=== PATIENT | female | born 1945 | race Two or more races ===

== ENCOUNTER 2024-07-04 21:45 | Emergency (ER) | payer OTHER, MEDICAID, SELFPAY ==
[2024-07-04 21:52] VITALS: BP 112/78; PULSE 97; RESP 18; TEMP 36.9; O2SAT 97; BMI 29.9
[2024-07-04 22:10] VITALS: PULSE 102; RESP 16; O2SAT 97; BMI 26.4
--- NOTE | 2024-07-04 22:33 | XR_ITS ---
Examination: Wrist, left 3 views Technique: Wrist AP, oblique, lateral 3 views Date and time of exam: 30 5:00 PM Indications: Edema and pain involving the wrist this week. Findings: Severe osteopenia No acute fracture Moderate diffuse narrowing joints of the wrist and hand Soft tissue swelling about the wrist Impression: No fracture No phuong cortical bone destruction
--- NOTE | 2024-07-04 22:33 | XR_ITS ---
Examination: Hand, right 3 views Technique: Hand AP, oblique, lateral 3 views Date and time of exam: 03/14/2024 1035 hrs. Indications: Pain and edema involving the hand this week. Findings: Severe osteopenia Diffuse moderate narrowing joints of the wrist and hand Soft tissue swelling about the third digit with tiny bone density adjacent to the proximal interphalangeal joint No fracture No phuong cortical bone destruction Impression: Soft tissue swelling about the third digit No phuong cortical bone destruction If early osteomyelitis is a clinical consideration, recommend MRI hand without contrast follow-up
--- NOTE | 2024-07-04 22:34 | PD.EDRME ---
Rapid Medical Screening Exam RME Arrival date/time: 07/04/24 21:45 79-year-old female with past medical history of osteoporosis, diabetes, presents emergency department with family ember at bedside complaining of left wrist pain and swelling as well as right hand pain and swelling. Member at bedside reports is unable to care for patient any longer and is requesting SNF placement. Chief Complaint: Hand/Wrist Problems Time Seen by Provider: 07/04/24 22:25 Vital signs: Vital Signs Temperature 98.5 F 07/04/24 21:52 Pulse Rate 97 07/04/24 21:52 Respiratory Rate 18 07/04/24 21:52 Blood Pressure 112/78 07/04/24 21:52 Pulse Oximetry (%) 97 07/04/24 21:52 Oxygen Delivery Method Room Air 07/04/24 21:52 Vital signs reviewed by provider: Yes
[2024-07-04] MEDS: ACETAMINOPHEN 500 MG TABLET 1000 MG PO (22:56)
[2024-07-04 23:15] LABS: Basophils % (Auto) 0 % (0-2.5); Eosinophils % (Auto) 0 % (0-10); Hematocrit 37.4 % (36.0-46.0); Hemoglobin 12.4 g/dL (12.0-16.0); Immature Granulocytes % (Auto) 0 % (0-0); Immature Granulocytes Auto 0.02 Thou/mm3 (0.00-0.00); Lymphocytes # (Auto) 1.1 Thou/mm3 (1.0-4.8); Lymphocytes % (Auto) 16 % (10-50); Mean Corpuscular HGB Conc 33.2 g/dl (31.0-37.0); Mean Corpuscular Hemoglobin 27.3 pg (25.0-35.0); Mean Corpuscular Volume 82 fL (80-100); Monocytes % (Auto) 15 % (0-12); Neutrophils # (Auto) 4.8 Thou/mm3 (1.8-7.7); Neutrophils % (Auto) 69 % (37-80); Nucleated Red Blood Cell % 0 /100 WBC (0); Platelet Count 250 Thou/mm3 (140-440); RDW Standard Deviation 41.2 fL (36.4-46.3); Red Blood Count 4.55 Miln/mm3 (4.00-5.20); White Blood Count 6.9 Thou/mm3 (3.6-11.0)
[2024-07-04 23:35] LABS: Alanine Aminotransferase 9 U/L (10-49); Albumin/Globulin Ratio 1.4 (1.2-2.2); Alkaline Phosphatase 104 U/L (46-116); Anion Gap 5 (7-16); Aspartate Amino Transferase 15 U/L (0-34); BUN/Creatinine Ratio 34 Ratio (12-20); Bilirubin,Total 0.7 mg/dL (0.3-1.2); Blood Urea Nitrogen 24 mg/dL (9-23); Calcium 10.2 mg/dL (8.3-10.6); Calcium (Corrected) 10.2 mg/dL (8.5-10.1); Carbon Dioxide 25.7 mMol/L (20.0-31.0); Chloride 105 mMol/L (98-107); Creatinine (Component) 0.7 mg/dL (0.6-1.3); Estimated Creatinine Clearance 57.5 mL/min (>60); Globulin 2.9 gm/dL (2.3-3.5); Glucose 103 mg/dL (74-106); Osmolality,Calculated 275 (275-295); Potassium 3.9 mMol/L (3.4-5.1); Sodium 136 mMol/L (136-145); Total Protein 6.9 gm/dL (5.7-8.2); eGFR > 60 See Note
[2024-07-05] VITALS (8 sets, daily range): BP systolic 99–115; BP diastolic 70–81; PULSE 77–98; RESP 17–20; TEMP 36.7–37.2; O2SAT 93–96; BMI 11.0
--- NOTE | 2024-07-05 00:20 | PC.NURSE ---
Pt to room 6 at this time from lobby; assumed care.
--- NOTE | 2024-07-05 01:23 | XR_ITS ---
Examination: AP chest single view Technique one AP portable semiupright chest single view Exam date and time: July 05, 2024 0300 hours Comparison November 12, 2017 INDICATIONS: Shortness of breath today. FINDINGS: Mild enlargement cardiac contour Prominent vascular congestion Marked elevation left hemidiaphragm with subsegmental atelectasis left base Ectatic thoracic aorta IMPRESSION: Moderate vascular congestion
--- NOTE | 2024-07-05 01:23 | XR_ITS ---
Examination: CT abdomen with intravenous contrast CT pelvis with intravenous contrast 2-D coronal reconstructions 2-D sagittal reconstructions Date and time of exam:July 05, 2024 0205 hours INDICATIONS: Onset abdominal pain today. CTDI: vol (mGy) 29.2 DLP: (mGycm) 1293 Technique: Multiple axial sections of the abdomen and pelvis have been obtained. 64 slice high-resolution scanner used. 3 mm axial sections have been obtained, post intravenous injection 60 cc Isovue-370 2-D sagittal, coronal reconstructions obtained. Low dose protocols were performed. One or more of the following dose reduction techniques were used; automated exposure control, adjustment of the mA and/or KV according to patient size, use of iterative reconstruction technique. Findings: Most of the stomach has herniated into the hemithorax on the left This appearance is noted on the chest x-ray October 23, 2017 There is mucosal edema in the body the stomach and to a lesser extent the fundus No focal liver or splenic lesions No gallstones Left adrenal nodule 20 mm Renal parenchymal scar formation, no hydronephrosis Abdominal aorta is not enlarged Normal appendix No bowel obstruction Urinary bladder intact Calcified are stable uterine fibroid degeneration Prominent osteopenia Advanced disc narrowing L4-L5, L5-S1 IMPRESSION: Most of the stomach is herniated into the hemithorax on the left and appears rotated in appearance Consider GI series follow-up to exclude gastric outlet obstruction Gastritis pattern 20 mm left adrenal nodule, recommend MRI abdomen follow-up pre and postcontrast adrenal gland protocol
--- NOTE | 2024-07-05 01:23 | EKG_ITS ---
[facility] Test Date: 2024-07-05 Pat Name: MJ WILBURN Department: Room: - Gender: Female [employer] Supervisor: : 1945 Requested By: Robby Yen Order Number: [id number] Reading MD: Robby Yen Measurements Intervals [place] Rate: 77 P: 50 FL: 177 QRS: 34 QRSD: 90 T: 69 QT: 357 QTc: 405 Interpretive Statements SINUS RHYTHM Compared to ECG 10/23/2017 11:22:15 No significant changes /store/S0/[id number]/[id number].pdf
--- NOTE | 2024-07-05 01:24 | XR_ITS ---
Examination: CTA chest with intravenous contrast 2-D reconstructions 3-D reconstructions, vascular Date and time of exam: July 05, 2024 0205 hours INDICATIONS: Onset shortness of breath chest pain today CTDI: vol (mGy) 31.91 DLP: (mGycm) 566 Technique: Multiple axial sections of the thorax have been obtained. 3 mm slice thickness, from below the hemidiaphragms to above the apices of the lungs. Mediastinal and lung density settings have been obtained. 2-D sagittal and coronal reconstructions. 3-D angiographic renderings, 3-D volume renderings, 3D post processing, vascular maximum intensity projections obtained. Contrast administered is 100 cc Isovue-370. Low dose protocols were performed. One or more of the following dose reduction techniques were used; automated exposure control, adjustment of the mA and/or KV according to patient size, use of iterative reconstruction technique. Findings: No thoracic aortic aneurysm dilatation or dissection No pulmonary artery emboli No paratracheal tracheobronchial or bronchopulmonary adenopathy No pneumonia or pulmonary edema Please see the CT abdomen pelvis report today IMPRESSION: Negative for pulmonary artery emboli No pneumonia or pulmonary edema
--- NOTE | 2024-07-05 01:24 | XR_ITS ---
Examination: CT brain head without contrast. 2-D sagittal coronal reconstructions Date and time of exam:July 05, 2024 INDICATIONS: Altered mental status today CTDI: vol (mGy):45.30 DLP: (mGycm):1001 Technique: Multiple CT axial sections of the brain have been obtained, 5 mm slice thickness. Contrast has not been administered. 2-D sagittal, coronal reconstructions have been obtained Low dose protocols were performed. One or more of the following dose reduction techniques were used; automated exposure control, adjustment of the mA and/or KV according to patient size, use of iterative reconstruction technique. Findings: No significant ventricular enlargement. Intra-axial or extra-axial hemorrhage density is not seen. No mass effect or midline shift Basal cisterns are not remarkable. Fourth ventricle is midline. Cranial vault intact. Impression: Negative for acute hemorrhage, mass effect or midline shift
--- NOTE | 2024-07-05 01:25 | XR_ITS ---
Examination: Humerus 2 views left Technique: Humerus, AP lateral 2 views Date and time of exam: July 05, 2024 at 0254 hours INDICATIONS: Patient fell today with injury to the arm, left arm pain FINDINGS: No acute fracture No shoulder dislocation IMPRESSION: No acute fracture
--- NOTE | 2024-07-05 01:26 | XR_ITS ---
Examination: Hand, left 3 views Technique: Hand AP, oblique, lateral 3 views Date and time of exam: July 05, 2024 0220 hours INDICATIONS: Patient fell today with injury to hand, hand pain FINDINGS: Prominent osteopenia No acute fracture No dislocation IMPRESSION: No acute fracture
--- NOTE | 2024-07-05 01:27 | XR_ITS ---
Examination: Tibia-Fibula, bilateral , 4 views. Technique one AP lateral right and left tibia-fibula is 4 views Date and time of exam: July 05, 2024 0222 hours INDICATIONS: Patient fell today with injury to both lower legs, bilateral lower leg pain Findings: Studies are limited, not including the entire tibia fibula on all views Moderate osteopenia No acute fracture is noted IMPRESSION: Incomplete study with no acute fractures noted
--- NOTE | 2024-07-05 01:27 | XR_ITS ---
Examination: Bilateral femur 4 views Technique one AP lateral right and left femur 4 views Exam date and time: July 05, 2024 0234 hours INDICATIONS: Patient fell today with injury to both lower legs, bilateral femur pain FINDINGS: Moderate osteopenia No right or left hip fracture or hip dislocation Moderate narrowing hip joints Shaft right and left femur intact Bilateral significant knee effusions, clinical correlation advised IMPRESSION: No acute fracture Significant bilateral knee effusions, clinical correlation advised
[2024-07-05 01:56] LABS: Lactate (Lactic Acid) 0.6 mMol/L (0.4-2.0)
[2024-07-05 01:59] LABS: Basophils % (Auto) 0 % (0-2.5); Eosinophils % (Auto) 0 % (0-10); Hematocrit 34.1 % (36.0-46.0); Hemoglobin 11.3 g/dL (12.0-16.0); Immature Granulocytes % (Auto) 0 % (0-0); Immature Granulocytes Auto 0.02 Thou/mm3 (0.00-0.00); Lymphocytes % (Auto) 14 % (10-50); Mean Corpuscular HGB Conc 33.1 g/dl (31.0-37.0); Mean Corpuscular Volume 82 fL (80-100); Monocytes % (Auto) 14 % (0-12); Neutrophils # (Auto) 4.8 Thou/mm3 (1.8-7.7); Neutrophils % (Auto) 71 % (37-80); Nucleated Red Blood Cell % 0 /100 WBC (0); Platelet Count 215 Thou/mm3 (140-440); RDW Standard Deviation 41.2 fL (36.4-46.3); Red Blood Count 4.18 Miln/mm3 (4.00-5.20); White Blood Count 6.7 Thou/mm3 (3.6-11.0)
--- NOTE | 2024-07-05 02:03 | PC.NURSE ---
Pt to CT scan at this time via [facility].
[2024-07-05 02:06] LABS: Sed Rate (ESR) 87 mm/hr (0-30)
[2024-07-05 02:14] LABS: D-Dimer 2310 ng/mL (<600)
[2024-07-05 02:15] LABS: Mono Screen Negative (Negative)
[2024-07-05 02:17] LABS: INR 1.1 (0.9-1.3); Partial Thromboplastin Time 31.3 Seconds (22.0-36.0); Prothrombin Time 11.8 Seconds (9.0-12.2)
[2024-07-05 02:21] LABS: B-Type Natriuretic Peptide 24 pg/mL (0-100)
[2024-07-05 02:29] LABS: Albumin, Serum 3.6 gm/dL (3.4-4.8); Albumin/Globulin Ratio 1.4 (1.2-2.2); Alkaline Phosphatase 94 U/L (46-116); Anion Gap 8 (7-16); Aspartate Amino Transferase 13 U/L (0-34); BUN/Creatinine Ratio 29 Ratio (12-20); Bilirubin,Total 0.7 mg/dL (0.3-1.2); Blood Urea Nitrogen 23 mg/dL (9-23); Calcium 9.6 mg/dL (8.3-10.6); Calcium (Corrected) 9.9 mg/dL (8.5-10.1); Carbon Dioxide 23.4 mMol/L (20.0-31.0); Chloride 104 mMol/L (98-107); Creatine Kinase 22 U/L (34-171); Creatinine (Component) 0.8 mg/dL (0.6-1.3); Estimated Creatinine Clearance 50.3 mL/min (>60); Globulin 2.6 gm/dL (2.3-3.5); Glucose 111 mg/dL (74-106); Lipase 100 U/L (12-53); Magnesium 1.8 mg/dL (1.6-2.6); Osmolality,Calculated 274 (275-295); Potassium 3.8 mMol/L (3.4-5.1); Sodium 135 mMol/L (136-145); Thyroid Stimulating Hormone 5.27 uIU/mL (0.55-4.78); Total Protein 6.2 gm/dL (5.7-8.2); Troponin I < 0.002 ng/mL (0.0-0.045); Uric Acid 4.5 mg/dL (3.1-7.8); eGFR > 60 See Note
--- NOTE | 2024-07-05 02:33 | PC.NURSE ---
XRAY at the bedside at this time.
[2024-07-05 02:47] LABS: Alanine Aminotransferase 8 U/L (10-49)
[2024-07-05 03:03] LABS: Strep A Rapid Negative (Negative)
[2024-07-05 03:08] LABS: Respiratory Syncytial Virus Ag Negative (Negative)
--- NOTE | 2024-07-05 03:20 | PRELIM_ITS ---
CT scan of the head without intravenous contrast (axial sections with sagittal and coronal reformats) July 05, 2024 0203 hours Clinical history: AMS No prior study is available for comparison. Findi ngs:There is no evidence of intracranial hemorrhage, mass effect or midline shift. There are mild per iventricular white matter hypodensities, likely representing chronic small vessel ischemia. There is mild volume loss. The calvarium is unremarkable. The mastoid air cells and the visualized paranasal s inuses are clear.Impression:No evidence of intracranial hemorrhage, mass effect or midline shift.Madelyn ventricular chronic small vessel ischemia and volume loss. Report Electronically Signed By: Jarred conde 07/05/2024 3:19:32 AM [EST]
--- NOTE | 2024-07-05 03:24 | EDNOTE_ITS ---
ED General RME/HPI General Chief complaint: Hand/Wrist Problems Stated complaint: HAND SWELLING Time Seen by Provider: 07/04/24 22:25 Arrival date/time: 07/04/24 21:45 RME / HPI RME / HPI narrative: 07/04/24 21:45 79-year-old female with past medical history of osteoporosis, diabetes, presents emergency department with family ember at bedside complaining of left wrist pain and swelling as well as right hand pain and swelling. Member at bedside reports is unable to care for patient any longer and is requesting SNF placement. This section includes all my notes and documentations, including HPI, PE, and ED course. Robby Grossman MD HPI: 79-year-old female here to be evaluated with many areas of pain and decreased ability to stand and walk. Patient has dementia also can't provide any history. But her sister lives with her and the sister is present. In the past few days, patient has been suffering from pain almost diffusely. Difficult to localize, other than different joints (including left wrist and right ankle) with no obvious pattern. And the patient has been having more trouble standing and walking on her own for no obvious reason. No obvious fever. No other complaints. ROS: Can't obtain from the patient due to dementia. Physical Exam: General: Alert and oriented X 1. No acute distress when remaining still. Eyes: Conjunctivae and lids clear. EOMI. PERRL. ENT: No nasal congestion. Neck: Supple. No carotid bruit. No JVD. Heart: RRR. Lungs: No respiratory distress. Moderately decreased air movement. No significant rhonchi, wheezing, rales. Abdomen: Soft with diffuse and severe tenderness, difficult to localize. Decreased bowel sounds. Equivocal distension. Equivocal rebound and guarding. Skin: Warm and dry. Neuro: Alert and oriented X 1. Cranial Nerves II-XII grossly intact. No peripheral motor deficits. Musculoskeletal: Many joints are severely tender and edematous, including left hand/wrist and right ankle. I reviewed all diagnostic test results. My interpretation of the EKG is sinus rhythm with nonspecific ST-T changes. My interpretation of the x-rays is My review of the CT reports is severe hiatal hernia with gastric volvulus and obstruction. Blood tests and urine tests remarkable for D-dimer 2310, LA 0.6, uric acid 4.5, CRP 11. COVID/influenza/mono/strep/RSV negative. At this point, diagnoses include severe hiatal hernia with gastric volvulus and obstruction. I discussed the case with our GI and our surgeon. About the presentation and exam and diagnostics and treatments here. And need of further care in the hospital. Recommended transfer because hiatal hernia surgery not available here. At 6 AM, the care of the patient was transferred to Dr Villegas. Robby Grossman MD Related Data Home Medications ?Medication ?Instructions ?Recorded ?Confirmed atenolol 50 mg tablet (Tenormin) 50 mg PO QAM #0 tabs 08/22/16 10/19/18 gabapentin 100 mg capsule 300 mg PO HS #0 caps 08/22/16 10/19/18 metformin 500 mg tablet 500 mg PO BID #0 tabs 08/22/16 10/19/18 (Glucophage) simvastatin 20 mg tablet (Zocor) 20 mg PO HS #0 tabs 08/22/16 10/19/18 alendronate 70 mg tablet 70 mg PO Q7D 10/23/17 10/19/18 aspirin 81 mg tablet,delayed 81 mg PO QDAY 10/23/17 10/19/18 release (Aspir-Low) cyanocobalamin (vitamin B-12) 5,000 mcg PO QDAY 10/23/17 10/19/18 5,000 mcg sublingual tablet donepezil [Aricept] 10 tab PO HS 04/12/18 10/19/18 acetaminophen 500 mg tablet 500 mg PO Q6H PRN Pain 10/19/18 10/19/18 (Tylenol Extra Strength) baclofen 10 mg tablet 10 mg PO BID 10/19/18 10/19/18 calcium carbonate (Calcium 600) 1 tab PO DAILY 10/19/18 10/19/18 fluoxetine 20 mg capsule 20 mg PO QDAY 10/19/18 10/19/18 melatonin 5 mg tablet 5 mg PO HS 10/19/18 10/19/18 memantine 10 mg tablet 10 mg PO BID 10/19/18 10/19/18 multivitamin,tx-minerals 1 cap PO QDAY 10/19/18 10/19/18 (Multi-Vitamin HP/Minerals capsule) omega 9-hdp-dcl-fish oil 1,000 mg 1 cap PO DAILY 10/19/18 10/19/18 (120 mg-180 mg) capsule (Fish Oil) omeprazole 40 mg capsule,delayed 40 mg PO QDAY 10/19/18 10/19/18 release Allergies Allergy/AdvReac Type Severity Reaction Status Date / Time No Known Allergies Allergy Verified 07/04/24 22:14 Course Quality Measures none Orders Category Date Time Status Bedside COVID-19 Antigen Test NOW Care 07/05/24 01:23 Active Bedside Influenza A&B Antigen Test NOW Care 07/05/24 01:[address] Screening NOW Care 07/05/24 01:23 Active EKG (ED ONLY) *Do not use* NOW Care 07/05/24 01:23 Completed Saline [Insert IV] NOW Care 07/05/24 01:23 Active Straight [In and Out Catheter] X1 Care 07/05/24 01:23 Active Referral Physical Therapy Stat Cons 07/04/24 22:[address] abdomen pelvis w con Stat Exams 07/05/24 01:[address] angio chest Stat Exams 07/05/24 01:[address] head/brain wo con Stat Exams 07/05/24 01:24 Taken EKG (ED Only) Stat Exams 07/05/24 01:23 Draft XR chest 1V portable Stat Exams 07/05/24 01:23 Taken XR femur BI min 2V Stat Exams 07/05/24 01:27 Taken XR hand comp LT min 3V Stat Exams 07/05/24 01:26 Taken XR hand comp RT min 3V Stat Exams 07/04/24 22:33 Completed XR humerus BI min 2V Stat Exams 07/05/24 01:25 Taken XR tibia fibula BI 2V Stat Exams 07/05/24 01:27 Taken XR wrist comp LT min 3V Stat Exams 07/04/24 22:33 Completed BNP [B-Type Natriuretic Peptide] Stat Lab 07/05/24 01:44 Completed Blood Culture (Lab) Stat Lab 07/05/24 01:54 Received CBC Stat Lab 07/04/24 22:57 Completed CBC Stat Lab 07/05/24 01:44 Completed CK [Creatine Kinase] Stat Lab 07/05/24 01:44 Completed CMP [Comprehensive Metabolic Panel] Stat Lab 07/04/24 22:57 Completed CMP [Comprehensive Metabolic Panel] Stat Lab 07/05/24 01:44 Completed CRP [C-Reactive Protein] Stat Lab 07/05/24 01:44 Completed D-Dimer Stat Lab 07/05/24 01:44 Completed ESR [Sed Rate (ESR)] Stat Lab 07/05/24 01:44 Completed Lactate (Lactic Acid) Stat Lab 07/05/24 01:44 Completed Lipase Stat Lab 07/05/24 01:44 Completed Magnesium Stat Lab 07/05/24 01:[address] [place] [facility] Screen Stat Lab 07/05/24 01:44 Completed PT [Prothrombin Time with INR] Stat Lab 07/05/24 01:44 Completed PTT [Partial Thromboplastin Time] Stat Lab 07/05/24 01:44 Completed RSV [Respiratory Syncytial Virus Ag] Stat Lab 07/05/24 01:44 Completed Strep A Rapid Stat Lab 07/05/24 01:44 Completed TSH [Thyroid Stimulating Hormone] Stat Lab 07/05/24 01:44 Completed Troponin I Stat Lab 07/05/24 01:44 Completed Uric Acid Stat Lab 07/05/24 01:44 Completed Urinalysis, C/S if Indicated Stat Lab 07/04/24 04:55 Completed Urine Culture Stat Lab 07/05/24 04:55 Received Acetaminophen Tab [Tylenol ES Tab] Med 07/04/24 22:33 Discontinued 1,000 mg PO X1 ONE Referral Nursing Unit Manager NOW 07/04/24 22:37 Active Vital Signs Vital signs: Vital Signs Temperature 98.5 F 07/04/24 21:52 Pulse Rate 97 07/04/24 21:52 Respiratory Rate 18 07/04/24 21:52 Blood Pressure 112/78 07/04/24 21:52 Pulse Oximetry (%) 97 07/04/24 21:52 Oxygen Delivery Method Room Air 07/04/24 21:52 [facility] Patient data External records reviewed:: [facility] previous records and EMS form Clinical information provided by:: EMS and family Social determinants that could affect healthcare access:: other (specify) (Dementia) Patient has the following chronic illnesses:: See chart How is presenting disease/condition affected by chronic disease/condition?: e xacerbated by Evaluation data The following diagnostics were reviewed and interpreted by me:: lab results, radiology exam(s) and EKG tracing(s) (My interpretation of the EKG: NSR (77 bpm) with no ST-T changes. Robby Grossman MD) Lab and/or radiology exams considered but not ordered:: None Interpretation Summary: Severe hiatal hernia with volvulus and obstruction Medications Medications considered but not ordered:: None Medication administrations:: Medication Administration History Discontinued Medications Acetaminophen (Acetaminophen 500 Mg Tablet) 1,000 mg PO X1 ONE Stop: 07/04/24 22:34 Last Admin: 07/04/24 22:56 Dose: 1,000 mg Documented By: See chart Consultations Consultation(s) initiated? (list below): Yes Consultation #1 (Physician, Specialty, Details): Surgery and GI Diagnosis Differential Diagnosis ED Complaint MDM: UTI, pneumonia, CVA, DC, sepsis, dehydration, electrolyte abnormalities Most likely diagnosis given after review of the tests above:: Severe hiatal hernia with volvulus and obstruction Admission Indicated Admission indicated?: not indicated Explain why admission is indicated or not indicated:: Our GI and surgery recommended transfer Admission Request Was there a request for admission?: No Disposition Plan Disposition Plan: Transfer Medical Decision Making Differential Diagnosis Differential Diagnosis: UTI, pneumonia, CVA, DC, sepsis, dehydration, electrolyte abnormalities Lab Data 07/05/24 01:44 07/05/24 01:44 Labs: Lab Results 07/04/24 07/04/24 07/05/24 Range/Units 04:55 22:57 01:44 WBC 6.9 6.7 (3.6-11.0) Thou/mm3 RBC 4.55 4.18 (4.00-5.20) Miln/mm3 Hgb 12.4 11.3 L (12.0-16.0) g/dL Hct 37.4 34.1 L (36.0-46.0) % MCV 82 82 (80-100) fL MCH 27.3 27.0 (25.0-35.0) pg MCHC 33.2 33.1 (31.0-37.0) g/dl RDW Std Deviation 41.2 41.2 (36.4-46.3) fL Plt Count 250 215 D (140-440) Thou/mm3 Neut % (Auto) 69 71 (37-80) % Lymph % (Auto) 16 14 (10-50) % [facility] [place] [facility] % (Auto) 15 H 14 H (0-12) % Eos % (Auto) 0 0 (0-10) % Baso % (Auto) 0 0 (0-2.5) % Neut # (Auto) 4.8 4.8 (1.8-7.7) Thou/mm3 Lymph # (Auto) 1.1 1.0 (1.0-4.8) Thou/mm3 [facility] # (Auto) 1.0 H 1.0 H (0.0-0.8) Thou/mm3 Eos # (Auto) 0.0 0.0 (0.0-0.5) Thou/mm3 Baso # (Auto) 0.0 0.0 (0.0-0.2) Thou/mm3 Immature Gran # (Auto) 0.02 H 0.02 H (0.00-0.00) Thou/mm3 Absolute Nucleated RBC 0.00 0.00 (0.00-0.00) Thou/mm3 Immature Gran % 0 0 (0-0) % Nucleated RBC % 0 0 (0) /100 WBC ESR 87 H (0-30) mm/hr PT 11.8 (9.0-12.2) Seconds INR 1.1 (0.9-1.3) APTT 31.3 (22.0-36.0) Seconds D-Dimer 2310 H (<600) ng/mL Sodium 136 135 L (136-145) mMol/L Potassium 3.9 3.8 (3.4-5.1) mMol/L Chloride 105 104 (98-107) mMol/L Carbon Dioxide 25.7 23.4 (20.0-31.0) mMol/L Anion Gap 5 L 8 (7-16) BUN 24 H 23 (9-23) mg/dL Creatinine 0.7 0.8 (0.6-1.3) mg/dL Estim Creat Clear Calc 57.5 L 50.3 L (>60) mL/min eGFR > 60 > 60 (60 - ) See Note BUN/Creatinine Ratio 34 H 29 H (12-20) Ratio Glucose 103 111 H (74-106) mg/dL Calculated Osmolality 275 274 L (275-295) Lactic Acid 0.6 (0.4-2.0) mMol/L Uric Acid 4.5 (3.1-7.8) mg/dL Calcium 10.2 9.6 (8.3-10.6) mg/dL Corrected Calcium 10.2 H 9.9 (8.5-10.1) mg/dL Magnesium 1.8 (1.6-2.6) mg/dL Total Bilirubin 0.7 0.7 (0.3-1.2) mg/dL AST 15 13 (0-34) U/L ALT 9 L 8 L (10-49) U/L Alkaline Phosphatase 104 94 (46-116) U/L Total Creatine Kinase 22 L (34-171) U/L Troponin I < 0.002 (0.0-0.045) ng/mL C-Reactive Prot, Quant 11.0 H (0.0-0.9) mg/dL B-Natriuretic Peptide 24 (0-100) pg/mL Total Protein 6.9 6.2 (5.7-8.2) gm/dL Albumin 4.0 3.6 (3.4-4.8) gm/dL Globulin 2.9 2.6 (2.3-3.5) gm/dL Albumin/Globulin Ratio 1.4 1.4 (1.2-2.2) Lipase 100 H (12-53) U/L TSH 5.27 H (0.55-4.78) uIU/mL Ur Collection Type Clean Catch Urine Color Lt-Yellow (Lt Yel-Yel) Urine Clarity Clear (Clear/Hazy) Urine pH 7.0 (5.0-7.0) Ur Specific [place] 1.034 (1.001-1.035) Urine Protein Negative (Neg - Trace) Urine Glucose (UA) Negative (Negative) Urine Ketones Negative (Negative) Urine Blood Negative (Negative) Urine Nitrite Negative (Negative) Urine Bilirubin Negative (Negative) Urine Urobilinogen (Auto) Negative (0.0-1.0) mg/dL Ur Leukocyte Esterase Negative (Negative) Urine RBC 8 H (0-3) /hpf Urine WBC < 1 (0-5) /hpf Ur Squamous Epith Cells < 1 (0-5) /hpf Urine Bacteria None (None) Ur Culture Indicated? Not Indicated Monoscreen Negative (Negative) RSV Rapid Negative (Negative) Group A Strep Rapid Negative (Negative) Discharge Plan Plan Patient Disposition: Xfer Acute Care Fac Prescriptions/Referrals Prescriptions/Med Rec: No Action donepezil 10 tab PO HS gabapentin 100 MG capsule 300 mg PO HS Qty: 0 metformin [Glucophage] 500 MG tablet 500 mg PO BID Qty: 0 simvastatin [Zocor] 20 MG tablet 20 mg PO HS Qty: 0 atenolol [Tenormin] 50 MG tablet 50 mg PO QAM Qty: 0 alendronate 70 mg Tablet 70 mg PO Q7D aspirin [Aspir-Low] 81 mg Tablet,Delayed Release (Dr/Ec) 81 mg PO QDAY cyanocobalamin (vitamin B-12) 5,000 mcg Tablet, Sublingual 5,000 mcg PO QDAY omeprazole 40 mg Capsule,Delayed Release(Dr/Ec) 40 mg PO QDAY acetaminophen [Tylenol Extra Strength] 500 mg Tablet 500 mg PO Q6H PRN (Reason: Pain) calcium carbonate [Calcium 600] 600 mg calcium (1,500 mg) Tablet 1 tab PO DAILY baclofen 10 mg Tablet 10 mg PO BID fluoxetine 20 mg Capsule 20 mg PO QDAY Multi-Vitamin HP/Minerals Capsule 1 cap PO QDAY memantine 10 mg Tablet 10 mg PO BID melatonin 5 mg Tablet 5 mg PO HS omega 8-eub-oul-fish oil [Fish Oil] 1,000 mg (120 mg-180 mg) Capsule 1 cap PO DAILY Referrals: Dirk Dyer MD [Primary Care Provider] - In 1 week Problem List Clinical Impression: Large hiatal hernia, Acute gastric volvulus Patient/Caregiver Discharge Instructions Print Language: Luxembourgish Stand Alone Forms: [facility] Award Info., Patient Portal Info Letter
--- NOTE | 2024-07-05 03:41 | PRELIM_ITS ---
CT scan of the abdomen and pelvis with intravenous contrast (axial sections with sagittal and coronal reformats) July 05, 2024 at 0205 hoursClinical History: Abdominal pain.No prior study is availab le for comparison. Findings:Multiple calculi are noted within the gallbladder, without evidence of ga llbladder wall thickening or pericholecystic fluid. There is a left adrenal nodule, measuring 2 cm wi th density of +65 HU of indeterminate etiology. The liver, pancreas, spleen, kidneys are unremarkable .A large hiatal hernia is present with herniation of the entire stomach. The stomach is distended wit h air-fluid level and inverted appearance suggestive of organo-axial volvulus. No evidence of bowel d ilatation. The appendix is within normal limits. There are occasional colonic diverticula without radha dence of diverticulitis. There is no adenopathy. The aorta and its branches demonstrate atheromatous calcification without evidence of aneurysm.The urinary bladder is not well distended. There are calci fied intrauterine fibroids. There is no free fluid or free air.Mild degenerative changes are identifi ed in the spine. There is mild anterolisthesis of L3 over L4 and L4 over L5. Impression:Large hiatal hernia with features of gastric volvulus, possibility of partial gastric outlet obstruction cannot be excluded.Indeterminate left adrenal nodule. Other findings as described above. Please refer to the r eport on the Chest CT submitted separately. Report Electronically Signed By: Jarred Craig 4 3:40:45 AM [EST]
--- NOTE | 2024-07-05 03:41 | PRELIM_ITS ---
CT angiogram of the chest aorta with intravenous contrast (axial sections with sagittal and coronal r eformats) July 05, 2024 at 0205 hours Clinical History: Shortness of breath.No prior study is ramya ilable for comparison. Findings:The thoracic aorta demonstrates mild atheromatous calcification with a tortuous course and without evidence of dissection or aneurysm. The origins of the right brachiocep halic, left common carotid and left subclavian arteries are patent.There is no filling defect within the pulmonary artery divisions to suggest pulmonary thromboembolism.Mild emphysematous changes are no shai in the lungs. There is subsegmental atelectasis in the right middle lobe. Bibasilar streaky atele ctasis is present.The mediastinum demonstrates no evidence of mass or lymphadenopathy. There is a sma ll pericardial effusion. A large hiatal hernia is present, with herniation of the almost the entire s tomach, with elevation of the left hemidiaphragm, rightward mediastinal shift, and atelectasis in the left lower lobe of the lung. The stomach is distended with air-fluid level, with inverted appearance of stomach, suggestive of organo-axial volvulus.No evidence of pleural effusion or pneumothorax.Mild degenerative changes are identified in the spine. There are old compression deformities of T8 and T9 vertebrae. Impression:No evidence of pulmonary thromboembolism or aortic dissection/aneurysm.Small p ericardial effusion.Findings suggestive of large hiatal hernia with features of gastric volvulus, pa rtial gastric outlet obstruction cannot be excluded.Other findings as described above. Please refer t o the report on the Abdomen and Pelvis CT submitted separately.Discussion Details: Results verbally communicated to : Dr. Grossman at 03:34 AM 07/05/2024 Report Electronically Signed By: Jarred Craig 07/05 3:40:26 AM [EST]
[2024-07-05 05:04] LABS: Collection Type, Urine Clean Catch
[2024-07-05 05:06] LABS: Bilirubin,Urine Negative (Negative); Blood,Urine Negative (Negative); Clarity,Urine Clear (Clear/Hazy); Color,Urine Lt-Yellow (Lt Yel-Yel); Culture Indicated,Urine Not Indicated; Glucose, Urine Negative (Negative); Ketones,Urine Negative (Negative); Leukocyte Esterase,Urine Negative (Negative); Nitrite,Urine Negative (Negative); Protein,Urine Negative (Neg - Trace); RBC,Urine 8 /hpf (0-3); Specific Gravity,Urine 1.034 (1.001-1.035); Squamous Epithelial Cell,Urine < 1 /hpf (0-5); Urobilinogen,Urine Negative mg/dL (0.0-1.0); WBC,Urine < 1 /hpf (0-5)
--- NOTE | 2024-07-05 07:13 | PD.EDADDENDU ---
Emergency Room Addendum Addendum Narrative: 0600: Care assumed from Dr. Grossman, the previous shift emergency physician. Past medical, surgical, social and family history reviewed. Vitals and home medications reviewed. I will assume the care of the patient at this time, pending consultation with director of social media marketing. Please refer to the emergency department record for history and examination from initial visit.? EMS notes reviewed by me. Nursing notes reviewed by me. Vital signs reviewed by me. [facility] medical records reviewed by me. Patient has no complaints of nausea or vomiting. Reports she ate dinner okay and has had bowel movements. I reviewed patients EMR and she has had no previous CT's on record. She sparingly has CXR's which show elevation of the left hemidiaphragm that was incidentally noted today on the CT scan. Patient today complains of hand swelling. On my examination, patient is sleeping/resting comfortably, no findings suggestive of gastric volvulus. Patient admits to having decades worth of acid reflux and excessive burping but not to a degree that she would require surgery. Additionally reports she is evaluated by Dr. Dyer on a regular basis and had not been told she has a hiatal hernia. Patient has baseline dementia, will speak with daughter to obtain additional history. I discussed option of surgery with the patient and states at the age of 79, she doesn't think it is good to do surgery. 1345: Notified by our high school social studies tutor that the patients insurance [employer] has authorized placement at [facility].
--- NOTE | 2024-07-05 16:36 | PC.NURSE ---
Patient provided with a meal tray.
--- NOTE | 2024-07-05 18:41 | PC.NURSE ---
Report given to Cassie at [facility]
--- NOTE | 2024-07-05 18:56 | PC.CC ---
Pt Chacha Shannon is a 79 yr old female to ED for hand swelling. Pt is from home [address] in [place]. Pt resides with her sister Xuan Fall [phone]. Pts sister requesting SS consult for placement in skilled setting. BOAT MECHANIC CC met with pt at bedside, introducing self and role in pt care. At time of encounter pt is noted to be resting on gurney. Pt is noted to be alert and oriented to person, place and situation. Pt expressed that she is interested in skilled placement, due to increased weakness. Pt reports her preference of placement is at [facility], to be close to her family. Pt expressed verbal consent for [employer] CC to speak with her sister Xuan. 1439-BOAT MECHANIC CC spoke with pts sister, who confirmed preference in placement is at [facility]. Per pts sister due to her own health issues, she is unable to fully care for pt, who is becoming more dependent. Per pts sister to her knowledge pt does not have a hx of MH issues. Pt is not prescribed MH medications. Pt does not have ID/DD. Pt has never received services from a [facility]. BOAT MECHANIC CC explained process for placement with family being kept updated on placement. Pts sister is in agreement with plan. PASRR completed and clinical packet uploaded to [employer] to local facilities. Inquiry sent to [facility] for review. 1206-BOAT MECHANIC CC spoke with Cheri with [facility] who say they are able to accept pt based on auth from [facility]. BOAT MECHANIC CC informed Cheri that pts clinical packet has been faxed to [facility] and is under review at this time. 1339-Call from Jhoana with [facility], who has given auth and will follow up with Cheri. 1343-BOAT MECHANIC CC spoke with Cheri to provide update that [facility] will auth placement. Cheri requesting transport ETA after 1830 due to 3 new admissions this afternoon. BOAT MECHANIC CC agreed. 1452-Call from Cheri requesting that BOAT ME[employer]IC CC make contact with pts sister, to assess if pts family will be able to sign paperwork prior to 1630. Cheri request a call back. 1459-Call to pts sister Xuan who states she will go to [facility] to sign paperwork. 1502-Call to Cheri to confirm pts sister will go to sign paperwork. PCS and face sheet completed and uploaded to [employer]. 3848-Call to [facility] for gurney transport. Reference # [id number]-ovnauvv transport ETA. Clinical packet, and PCS attached to pts hard chart.
== END 2024-07-05 20:55 | disposition home or self-care (01) ==
PROVIDERS: Emergency Medicine; Emergency Provider Emergency Medicine; PCP Family Medicine
DX: K44.0 Diaphragmatic hernia with obstruction, without gangrene (principal); M25.532 Pain in left wrist; M79.641 Pain in right hand; M25.571 Pain in right ankle and joints of right foot; E11.9 Type 2 diabetes mellitus without complications; F03.90 Unspecified dementia, unspecified severity, without behavioral disturbance, psychotic disturbance, mood disturbance, and anxiety; K31.89 Other diseases of stomach and duodenum; M81.0 Age-related osteoporosis without current pathological fracture; Z74.2 Need for assistance at home and no other household member able to render care
CPT/HCPCS: 36415; 70450; 71045; 71275; 73060; 73110; 73130; 73552; 73590; 74177; 80053; 81001; 82550; 83605; 83690; 83735; 83880; 84443; 84484; 84550; 85025; 85379; 85610; 85652; 85730; 86140; 86308; 87040; 87086; 87400; 87634; 87651; 87811; 93005; 99285; A4649; Q9967; A9270

== ENCOUNTER 2025-06-23 01:14 | Emergency (ER) | payer MEDICARE, MEDICAID, SELFPAY ==
[2025-06-23 01:16] VITALS: PULSE 48; RESP 18; O2SAT 100
[2025-06-23 01:24] VITALS: BP 102/73; PULSE 68; RESP 18; TEMP 36.7; O2SAT 97; BMI 23.6
--- NOTE | 2025-06-23 01:42 | XR_ITS ---
Examination: Shoulder, left, 3 views Technique: Shoulder AP internal rotation, AP external rotation, Y view shoulder, 3 views Exam date and time : June 23, 2025, 0243 hours INDICATIONS: Patient fell 6 hours ago with injury to the shoulder, shoulder pain. FINDINGS: Prominent osteopenia No shoulder fracture or dislocation No AC joint separation IMPRESSION: No shoulder fracture or dislocation
--- NOTE | 2025-06-23 01:42 | XR_ITS ---
Examination: Knee, right, 3 views Technique: Knee AP, lateral, oblique 3 views Date and time of exam: June 23, 2025, 0237 hours INDICATIONS: Patient fell 6 hours ago with injury to the knee, knee pain. FINDINGS: Severe osteopenia Advanced tricompartment osteoarthritis Significant knee effusion No fracture IMPRESSION: No fracture Suggest short-term follow-up as clinically warranted, given the severe osteopenia
--- NOTE | 2025-06-23 01:42 | XR_ITS ---
EXAMINATION: AP chest single view TECHNIQUE: AP portable upright chest single view Date and time: June 23, 2025, 0240 hours, comparison July 05, 2024 INDICATIONS: Patient fell 6 hours ago with injury of the chest, chest pain FINDINGS: Significant elevation left hemidiaphragm Atelectasis versus pneumonia left base Mild enlargement cardiac contour No pneumothorax Severe osteopenia IMPRESSION: Elevation left hemidiaphragm with large retrocardiac gastric hernia No pneumothorax Atelectasis versus pneumonia at the left lung base
--- NOTE | 2025-06-23 01:42 | XR_ITS ---
Examination: CT cervical spine without contrast 2-D sagittal reconstructions 2-D coronal reconstructions 3-D reconstructions. Exam date and time: June 23, 2025, 0232 hours INDICATIONS: Patient slipped and fell today with injury to the neck, neck pain CTDI:vol (mGy) 11.86 DLP: (mGycm) 257 Technique: Multiple 2 mm axial sections of the cervical spine have been obtained. The coronal and sagittal reconstructions have been obtained. 3-D reconstructions have been obtained. Low dose protocols were performed. One or more of the following dose reduction techniques were used; automated exposure control, adjustment of the mA and/or KV according to patient size, use of iterative reconstruction technique. Findings: Axial sections demonstrate intact base of the skull. C1 exhibit satisfactory relationship to the odontoid. No acute cervical vertebral body fracture seen. Alignment posterior spinous processes satisfactory. Impression: No acute cervical fracture.
--- NOTE | 2025-06-23 01:42 | XR_ITS ---
Examination: CT brain head without contrast. 2-D sagittal coronal reconstructions Date and time of exam: June 23, 2025, 0230 hours INDICATIONS: Ground-level fall today with injury to the head, head pain CTDI: vol (mGy): 45.30 DLP: (mGycm): 943 Technique: Multiple CT axial sections of the brain have been obtained, 5 mm slice thickness. Contrast has not been administered. 2-D sagittal, coronal reconstructions have been obtained Low dose protocols were performed. One or more of the following dose reduction techniques were used; automated exposure control, adjustment of the mA and/or KV according to patient size, use of iterative reconstruction technique. Findings: No significant ventricular enlargement. Intra-axial or extra-axial hemorrhage density is not seen. No mass effect or midline shift Basal cisterns are not remarkable. Fourth ventricle is midline. Cranial vault intact. Impression: Negative for acute hemorrhage, mass effect or midline shift
--- NOTE | 2025-06-23 01:42 | XR_ITS ---
Examination: CT maxillofacial, without intravenous contrast. 2-D sagittal reconstructions. 3-D reconstructions. Date and time of exam: June 23, 2025, 0232 hours INDICATIONS: Patient with septum fell today with injury to the face, facial pain CTDI: vol (mGy): 16.70 DLP: (mGycm): 368 Technique: Multiple axial images of maxillofacial region, 3.0 mm slice thickness. 2-D sagittal and coronal reconstructions. 3-D reconstructions. Low dose protocols were performed. One or more of the following dose reduction techniques were used; automated exposure control, adjustment of the mA and/or KV according to patient size, use of iterative reconstruction technique. Findings: Mandible maxilla appear intact including pterygoid plates No depression zygomatic arches No nasal bone fracture Orbital rims appear intact Frontal bone intact Symmetrical optic globes IMPRESSION: No acute facial fracture.
--- NOTE | 2025-06-23 01:42 | XR_ITS ---
Examination: CT chest, without intravenous contrast. CT abdomen, without intravenous contrast. CT pelvis, without intravenous contrast. 2-D sagittal and coronal reconstructions. 3-D reconstructions. Date and time of exam: June 23, 2025, 0235 hours INDICATIONS: Patient slipped and fell today with injury to the chest and abdomen, chest pain abdomen pain left shoulder pain CTDI vol (mgy) 12.61 DLP (MGycm) 867 Technique: Multiple CT images, 3.0 mm slice thickness, obtained chest, abdomen, pelvis, with the high-resolution 64 slice scanner.. Sagittal and coronal 2-D reconstructions are obtained. 3-D reconstructions Low dose protocols were performed. One or more of the following dose reduction techniques were used; automated exposure control, adjustment of the mA and/or KV according to patient size, use of iterative reconstruction technique. Findings: Thoracic aorta pulmonary arteries intact Small pericardial effusion No pneumothorax Atelectasis versus pneumonia left base Herniation of most of the stomach into the left hemithorax Severe osteopenia I do not visualize definite acute fracture of thoracic vertebral bodies but clinical correlation advised Subacute fracture right ninth rib posteriorly No liver or splenic laceration Gallstones No pancreatic mass Tiny nonobstructing left renal calculi Aorta normal size no free blood in the abdomen or pelvis Negative for pneumoperitoneum Atrophic uterus with multiple small areas of calcified uterine fibroid degeneration Urinary bladder intact Old appearing fracture of the fifth sacral segment IMPRESSION: Limited noncontrast study Thoracic aorta pulmonary arteries intact, pericardial effusion as above No pneumothorax No definite acute thoracic fractures but suggest follow-up dedicated thoracic spine CT as clinically warranted Subacute versus old fracture right eighth rib posteriorly Cholelithiasis Nonobstructing left renal calculi. No abdominal parenchymal laceration Old appearing fracture fifth sacral segment but clinical correlation advised
--- NOTE | 2025-06-23 01:43 | PD.EDFALL ---
ED Fall Injury RME/HPI General Chief Complaint: Fall Stated Complaint: FALL Time Seen by Provider: 06/23/25 01:39 Arrival date/time: 06/23/25 01:14 RME / HPI RME / HPI Narrative: See [facility] for Dr. Grossman's HPI Documentation. Related Data Home Medications ?Medication ?Instructions ?Recorded ?Confirmed atenolol 50 mg tablet (Tenormin) 50 mg PO QAM #0 tabs 08/22/16 10/19/18 gabapentin 100 mg capsule 300 mg PO HS #0 caps 08/22/16 10/19/18 metformin 500 mg tablet 500 mg PO BID #0 tabs 08/22/16 10/19/18 (Glucophage) simvastatin 20 mg tablet (Zocor) 20 mg PO HS #0 tabs 08/22/16 10/19/18 alendronate 70 mg tablet 70 mg PO Q7D 10/23/17 10/19/18 aspirin 81 mg tablet,delayed 81 mg PO QDAY 10/23/17 10/19/18 release (Aspir-Low) cyanocobalamin (vitamin B-12) 5,000 mcg PO QDAY 10/23/17 10/19/18 5,000 mcg sublingual tablet donepezil [Aricept] 10 tab PO HS 04/12/18 10/19/18 acetaminophen 500 mg tablet 500 mg PO Q6H PRN Pain 10/19/18 10/19/18 (Tylenol Extra Strength) baclofen 10 mg tablet 10 mg PO BID 10/19/18 10/19/18 calcium carbonate (Calcium 600) 1 tab PO DAILY 10/19/18 10/19/18 fluoxetine 20 mg capsule 20 mg PO QDAY 10/19/18 10/19/18 melatonin 5 mg tablet 5 mg PO HS 10/19/18 10/19/18 memantine 10 mg tablet 10 mg PO BID 10/19/18 10/19/18 multivitamin,tx-minerals 1 cap PO QDAY 10/19/18 10/19/18 (Multi-Vitamin HP/Minerals capsule) omega 1-hpt-glr-fish oil 1,000 mg 1 cap PO DAILY 10/19/18 10/19/18 (120 mg-180 mg) capsule (Fish Oil) omeprazole 40 mg capsule,delayed 40 mg PO QDAY 10/19/18 10/19/18 release Previous Rx's ?Medication ?Instructions ?Recorded levofloxacin 500 mg tablet 500 mg PO QDAY 10 days #10 tabs 06/23/25 Allergies Allergy/AdvReac Type Severity Reaction Status Date / Time No Known Allergies Allergy Verified 07/04/24 22:14 Review of Systems Review of Systems Systems Reviewed: All systems reviewed, normal except as documented Past Medical History Past Medical History NEUROLOGIC: Positive Dementia and Alzheimer's Disease CARDIAC: Positive Hypercholesterolemia, Hypertension and Hypotension RESPIRATORY: Positive Pneumonia GASTROINTESTINAL: Positive Ulcer and Gastroesophageal Reflux Disease MUSCULOSKELETAL: Positive Arthritis ENT: Positive Deafness ENDOCRINE: Positive Diabetes Mellitus Type 2 and Hypothyroidism PSYCHO/SOCIAL: Positive Depression and Anxiety OTHER HISTORY: Positive Falls, Chicken Pox and Measles Family History FAMILY HISTORY: Positive Family Cancer ED Exam Narrative Physical exam: See MDM for Dr. Grossman's Physical Exam Documentation. Course Quality Measures none Orders Category Date Time Status Straight [In and Out Catheter] X1 Care 06/23/25 01:[address] cervical spine wo con Stat Exams 06/23/25 01:[address] chest abdomen pelvis wo Stat Exams 06/23/25 01:[address] facial bones wo con Stat Exams 06/23/25 01:[address] head/brain wo con Stat Exams 06/23/25 01:42 Completed XR chest 1V portable Stat Exams 06/23/25 01:42 Completed XR knee LT 3V Stat Exams 06/23/25 03:10 Completed XR knee RT 3V Stat Exams 06/23/25 01:42 Completed XR shoulder LT min 2V Stat Exams 06/23/25 01:42 Completed BMP [Basic Metabolic Panel] Stat Lab 06/23/25 03:31 Completed CBC Stat Lab 06/23/25 03:31 Completed Magnesium Stat Lab 06/23/25 03:31 Completed TSH [Thyroid Stimulating Hormone] Stat Lab 06/23/25 03:31 Completed UA, C/S IF [Urinalysis, C/S if Indicated] Stat Lab 06/23/25 02:17 Completed Levofloxacin/D5w 500 mg Ivpb [Levaquin Ivpb] Med 06/23/25 05:19 Discontinued 500 mg in 100 ml IV X1 Vital Signs Vital signs: Vital Signs Temperature 98.1 F 06/23/25 01:24 Pulse Rate 68 06/23/25 01:24 Respiratory Rate 18 06/23/25 01:24 Blood Pressure 102/73 06/23/25 01:24 Pulse Oximetry (%) 97 06/23/25 01:24 Oxygen Delivery Method Room Air 06/23/25 01:24 Fall MDM Narrative MDM Narrative:: This section includes all my notes and documentations, including HPI, PE, and ED course. Robby Grossman MD HPI: 80 y/o female with HX of Dementia, Alzheimer's Disease, Arthritis, and Diabetes Mellitus Type 2 BIBA from SNF after falling just [employer]. She reports being in her wheelchair. Was trying to clean her dentures in the bathroom. She doesn't remember all the details. Thinks she fell while trying to get out of the wheelchair. She recalls hitting her head near the forehead and also falling on her back. When remaining still, she reports no pain. No other complaints. ROS: All negative except as documented in HPI. Physical Exam: General:? Alert and oriented.? No acute distress with remaining still. Eyes:? Conjunctivae and lids clear.? EOMI.? PERRL. ENT:? No signs of injury. Neck:? Supple.? No tenderness. Heart:? RRR. Lungs:? No respiratory distress.? Good air movement.? No rhonchi, wheezing, rales.? Chest:? No tenderness. Abdomen:? Soft and nontender.? Normal bowel sounds.? No distension.? No rebound or guarding.? Back:? No tenderness.? Skin:? Warm and dry.? In the middle of the forehead where it meets the scalp, there is 1 sized hematoma. Neuro:? Alert and oriented X 3.? Cranial Nerves II-XII grossly intact.? No peripheral motor deficits. Musculoskeletal:? All major joints and bones are not tender with no limited ROM. I reviewed EMS and penitentiary notes. I reviewed all diagnostic test results: My interpretation of the chest x-ray is: NAD. My interpretation of the bilateral knee x-rays is no fracture. My interpretation of the left shoulder x-rays there is no fracture. My review of the Head/Brain CT report is: NAD. My review of the Facial Bones CT report is: no fracture. My review of the C-Spine CT report is: no fracture. My review of the Chest/Abdomen/Pelvis CT report is: T8 compression fracture, right 9th rib fracture, and coccyx fracture. Pneumonia. At this point, diagnoses include: Fall Compression fracture of T8 vertebra Fracture of coccyx Fracture of right ninth rib Contusion of left shoulder Contusion of knee Pneumonia I discussed the case with Dr. Perez, our orthopedic surgeon on-call. About the presentation and exam and diagnostics and treatments here. And possible need of further care in the hospital. Recommend outpatient management. Based on my best medical judgment, made decision no further evaluation or treatment indicated at this time.? Patient understands and agrees to the discharge instructions customized and printed, see below. Discharge Instructions from Dr. Grossman printed for you: 1. After extensive evaluation, you sustained T8 compression fracture, tailbone fracture, right ninth rib fracture, left shoulder contusion, and bilateral knee contusions. Fortunately, there is no more serious injury. Such as brain injury or broken neck or internal organ injury. I discussed your case with our orthopedic surgeon and our hospitalist team (who takes care of admitted patients). And you don't meet the criteria to be admitted into the hospital. Because you don't need urgent surgery. 2. Rest for several days. Then we need to increase physical activity little by little every single day. Prolonged inactivity is terrible for your body. 3. Ask penitentiary doctor for help with pain. 4. You also have pneumonia. Take Levaquin as prescribed for 10 days. 5. See a private doctor on 06/26/2025 for recheck. Ask for help until you are completely better. Ask for referrals to see specialists to help you. 6. Seek immediate medical care with intolerable pain or with any concerns. Robby Grossman MD Patient data External records reviewed:: [facility] previous records (Reviewed prior ED records from 07/05/24. Patient was seen for Dementia.) and EMS form Clinical information provided by:: patient and EMS Social determinants that could affect healthcare access:: housing (SNF) Patient has the following chronic illnesses:: Dementia, Alzheimer's Disease, Hypercholesterolemia, Hypertension, Hypotension, Ulcer, Gastroesophageal Reflux Disease, Arthritis, Deafness, Diabetes Mellitus Type 2, Hypothyroidism, Depression and Anxiety How is presenting disease/condition affected by chronic disease/condition?: exacerbated by Evaluation data The following diagnostics were reviewed and interpreted by me:: lab results and radiology exam(s) Lab and/or radiology exams considered but not ordered:: None Interpretation Summary: I reviewed all diagnostic test results: My interpretation of the chest x-ray is: NAD. My interpretation of the bilateral knee x-rays is no fracture. My interpretation of the left shoulder x-rays there is no fracture. My review of the Head/Brain CT report is: NAD. My review of the Facial Bones CT report is: no fracture. My review of the C-Spine CT report is: no fracture. My review of the Chest/Abdomen/Pelvis CT report is: T8 compression fracture, right 9th rib fracture, and coccyx fracture. Pneumonia. Medications / Prescriptions Medications or Prescriptions considered but not ordered:: None Medication administrations:: Medication Administration History Discontinued Medications Levofloxacin/Dextrose (Levaquin Ivpb) 500 mg in 100 mls @ 100 mls/hr IV X1 ONE Stop: 06/23/25 06:18 Last Infusion: 06/23/25 06:29 Dose: Infused Documented By: Admin: 06/23/25 05:28 Dose: 100 mls/hr Documented By: KIRSTY None Consultations Consultation(s) initiated? (list below): Yes Consultation #1 (Physician, Specialty, Details): Based on my best medical judgment, made decision no further evaluation or treatment indicated at this time.? Patient understands and agrees to the discharge instructions customized and printed, see below. Diagnosis Fall Differential Diagnosis: syncope, dislocation of shoulder region, fracture of wrist, compression fracture, concussion with loss of consciousness and concussion without loss of consciousness Most likely diagnosis given after review of the tests above:: Fall Compression fracture of T8 vertebra Fracture of coccyx Fracture of right ninth rib Contusion of left shoulder Contusion of knee Pneumonia Admission Indicated Admission indicated?: not indicated Explain why admission is indicated or not indicated:: With no condition needing emergent intervention, there was no indication for admission. Admission Request Was there a request for admission?: Yes Admission Attestation Admission request attestation: Discussed case with [] from Hospitalist service regarding admission. Discussed patients ED course, exam findings, labs, and radiology results. The Hospitalist [agrees,declines] to accept the patient for admission. Disposition Plan Disposition Plan: Discharge Discharge Attestation Discharge Attestation: The patient and all family members were given an opportunity to ask questions and understood the discharge instructions. Discharge instructions specifically effects, indications for sooner follow up or return to the emergency department, and the expected course of current diagnosis. Patient condition: Stable Discharge Plan Plan Patient Disposition: Xfer Skilled Nsg Fac (SNF) Prescriptions/Referrals Prescriptions/Med Rec: New levofloxacin 500 mg tablet 500 mg PO QDAY 10 Days Qty: 10 0RF No Action donepezil [Aricept] 10 tab PO HS gabapentin 100 MG capsule 300 mg PO HS Qty: 0 metformin [Glucophage] 500 MG tablet 500 mg PO BID Qty: 0 simvastatin [Zocor] 20 MG tablet 20 mg PO HS Qty: 0 atenolol [Tenormin] 50 MG tablet 50 mg PO QAM Qty: 0 alendronate 70 mg Tablet 70 mg PO Q7D aspirin [Aspir-Low] 81 mg Tablet,Delayed Release (Dr/Ec) 81 mg PO QDAY cyanocobalamin (vitamin B-12) 5,000 mcg Tablet, Sublingual 5,000 mcg PO QDAY omeprazole 40 mg Capsule,Delayed Release(Dr/Ec) 40 mg PO QDAY acetaminophen [Tylenol Extra Strength] 500 mg Tablet 500 mg PO Q6H PRN (Reason: Pain) calcium carbonate [Calcium 600] 600 mg calcium (1,500 mg) Tablet 1 tab PO DAILY baclofen 10 mg Tablet 10 mg PO BID fluoxetine 20 mg Capsule 20 mg PO QDAY Multi-Vitamin HP/Minerals Capsule 1 cap PO QDAY memantine 10 mg Tablet 10 mg PO BID melatonin 5 mg Tablet 5 mg PO HS omega 1-juo-ikt-fish oil [Fish Oil] 1,000 mg (120 mg-180 mg) Capsule 1 cap PO DAILY Referrals: Jennie Angela MD [Primary Care Provider] - In 1 week Problem List Clinical Impression: Fall, Compression fracture of T8 vertebra, Fracture of coccyx, Fracture of right ninth rib, Contusion of left shoulder, Contusion of knee, Pneumonia Patient/Caregiver Discharge Instructions Discharge Activity: activity as tolerated Education Materials: ED Tailbone (Coccyx) Fracture, ED Fracture, Vertebral Compression, ED Contusion, Lower Extremity, ED Contusion, Upper Extremity, ED Rib Fracture, ED Pneumonia (Adult) Additional Instructions: Discharge Instructions from Dr. Grossman printed for you: 1. After extensive evaluation, you sustained T8 compression fracture, tailbone fracture, right ninth rib fracture, left shoulder contusion, and bilateral knee contusions. Fortunately, there is no more serious injury. Such as brain injury or broken neck or internal organ injury. I discussed your case with our orthopedic surgeon and our hospitalist team (who takes care of admitted patients). And you don't meet the criteria to be admitted into the hospital. Because you don't need urgent surgery. 2. Rest for several days. Then we need to increase physical activity little by little every single day. Prolonged inactivity is terrible for your body. 3. Ask penitentiary doctor for help with pain. 4. You also have pneumonia. Take Levaquin as prescribed for 10 days. 5. See a private doctor on 06/26/2025 for recheck. Ask for help until you are completely better. Ask for referrals to see specialists to help you. 6. Seek immediate medical care with intolerable pain or with any concerns. Print Language: Icelandic Stand Alone Forms: [employer] Award Info., Patient Portal Info Letter
[2025-06-23 02:31] LABS: Collection Type, Urine Clean Catch
[2025-06-23 02:52] LABS: Bilirubin,Urine 1+ (Negative); Blood,Urine Negative (Negative); Clarity,Urine Clear (Clear/Hazy); Color,Urine Yellow (Lt Yel-Yel); Culture Indicated,Urine Not Indicated; Glucose, Urine Negative (Negative); Ketones,Urine Trace (Negative); Leukocyte Esterase,Urine Negative (Negative); Nitrite,Urine Negative (Negative); PH,Urine 6.5 (5.0-7.0); Protein,Urine Trace (Neg - Trace); Specific Gravity,Urine 1.020 (1.001-1.035); Urobilinogen,Urine 0.2 mg/dL (0.0-1.0)
[2025-06-23 02:58] LABS: RBC,Urine 3 /hpf (0-3); WBC,Urine 2 /hpf (0-5)
[2025-06-23 02:59] LABS: Mucus,Urine 3+ /lpf; Squamous Epithelial Cell,Urine 15 /hpf (0-5)
--- NOTE | 2025-06-23 03:10 | XR_ITS ---
Examination: Knee, left, 3 views Technique: Knee AP, lateral, oblique 3 views Date and time of exam: June 23, 2025, 0306 hours INDICATIONS: Patient fell 6 hours ago with injury of the knee, knee pain. FINDINGS: Severe osteopenia Advanced tricompartment osteoarthritis. Significant knee effusion. No acute fracture IMPRESSION: No acute fracture Suggest short-term follow-up knee films given the severe osteopenia, as clinically warranted
--- NOTE | 2025-06-23 03:28 | PRELIM_ITS ---
CT scan of the head without intravenous contrast (axial sections with sagittal and coronal reformats) June 23, 2025 0230 hours Clinical History: Fall. Comparison: None available at the time of this report Findings: There is no evidence of intracranial hemorrhage, mass effect, or midline shift. There are periventricular white matter hypodensities, compatible with chronic small vessel ischemia. There is moderate volume loss. The calvarium is intact. The mastoid air cells and the visualized paranasal sinuses are clear. Impression: 1. No evidence of intracranial hemorrhage, midline shift, or calvarial fracture. 2. Periventricular chronic small vessel ischemia and volume loss. Report Electronically Signed By: Leno Velarde 06/23/2025 3:27:48 AM [EST]
--- NOTE | 2025-06-23 03:30 | PRELIM_ITS ---
CT maxillofacial without intravenous contrast (axial sections with sagittal and coronal reformats). June 23, 2025 at 0232 hours Clinical History: Trauma. Comparison: No prior study is available for comparison Findings: There is no fracture. The maxillary sinus and orbital barron are intact. No fluid levels are seen. No evidence of intraorbital hematoma, proptosis, globe injury, or radiodense foreign body. The zygomatic arches and mandible are intact. The visualized soft tissues are unremarkable. Impression: No maxillofacial fracture. Report Electronically Signed By: Leno Velarde 06/23/2025 3:30:10 AM [EST]
--- NOTE | 2025-06-23 03:35 | PRELIM_ITS ---
CT scan of the cervical spine without intravenous contrast (axial sections with sagittal and coronal reformats) June 23, 2025 at 0233 hours Clinical History: Trauma Comparison: None available at the time of this report Findings: There is no fracture or subluxation. The prevertebral soft tissues are unremarkable. Degenerative changes of the imaged portions of the spine. Chronic multilevel disc disease. No acute fractures. Vascular calcifications. Anterior and posterior bridging osteophytes. Impression: No evidence of fracture or subluxation. Report Electronically Signed By: Leno Velarde 06/23/2025 3:34:41 AM [EST]
[2025-06-23 04:04] LABS: Basophils # (Auto) 0.0 Thou/mm3 (0.0-0.2); Basophils % (Auto) 0 % (0-2.5); Eosinophils # (Auto) 0.1 Thou/mm3 (0.0-0.5); Eosinophils % (Auto) 1 % (0-10); Hematocrit 40.8 % (36.0-46.0); Hemoglobin 13.6 g/dL (12.0-16.0); Immature Granulocytes Auto 0.02 Thou/mm3 (0.00-0.00); Lymphocytes # (Auto) 1.2 Thou/mm3 (1.0-4.8); Lymphocytes % (Auto) 25 % (10-50); Mean Corpuscular HGB Conc 33.3 g/dl (31.0-37.0); Mean Corpuscular Hemoglobin 27.8 pg (25.0-35.0); Mean Corpuscular Volume 83 fL (80-100); Monocytes # (Auto) 0.5 Thou/mm3 (0.0-0.8); Monocytes % (Auto) 10 % (0-12); Neutrophils # (Auto) 2.9 Thou/mm3 (1.8-7.7); Neutrophils % (Auto) 63 % (37-80); Nucleated Red Blood Cell # 0.00 Thou/mm3 (0.00-0.00); Nucleated Red Blood Cell % 0 /100 WBC (0); Platelet Count 177 Thou/mm3 (140-440); RDW Standard Deviation 45.8 fL (36.4-46.3); Red Blood Count 4.90 Miln/mm3 (4.00-5.20); White Blood Count 4.7 Thou/mm3 (3.6-11.0)
[2025-06-23 04:12] VITALS: BP 102/73; PULSE 59; RESP 14; TEMP 37.3; O2SAT 95
[2025-06-23 04:27] LABS: Anion Gap 7 (7-16); BUN/Creatinine Ratio 29 Ratio (12-20); Blood Urea Nitrogen 23 mg/dL (9-23); Calcium 10.0 mg/dL (8.3-10.6); Carbon Dioxide 27.8 mMol/L (20.0-31.0); Chloride 103 mMol/L (98-107); Creatinine (Component) 0.8 mg/dL (0.6-1.3); Estimated Creatinine Clearance 54.3 mL/min (>60); Glucose 87 mg/dL (74-106); Magnesium 2.0 mg/dL (1.6-2.6); Osmolality,Calculated 278 (275-295); Potassium 4.4 mMol/L (3.4-5.1); Sodium 138 mMol/L (136-145); Thyroid Stimulating Hormone 1.49 uIU/mL (0.55-4.78); eGFR > 60 See Note
--- NOTE | 2025-06-23 04:29 | PRELIM_ITS ---
CT scan of the chest, abdomen and pelvis without intravenous contrast (axial sections with sagittal and coronal reformats) June 23, 2025 at 0235 hours Clinical History: Fall. Comparison: None available at the time of this report. Findings: Left lower lobe consolidation. Large hiatus hernia containing the entire stomach. There is no pleural effusion or pneumothorax. The aorta is within normal limits for age on this noncontrast study. There is no mediastinal collection. There is a small complex pericardial effusion. The liver, spleen, pancreas, adrenals and kidneys are unremarkable on this noncontrast study. Gallstones without evidence of acute cholecystitis. The bowel is unremarkable. The urinary bladder is nondistended, limited evaluation. There is no free fluid or free air. Probable acute fracture of the coccyx. Mild anterior listhesis of L4 and L3. Degenerative changes of the imaged portions of the spine. Chronic multilevel disc disease. Questionable acute compression fracture of the superior endplate of T8. Acute undisplaced fracture of the right posterior ninth rib, at this level some sclerotic changes also present. Vascular calcifications. Calcified uterine fibroids. No evidence of left shoulder fractures at this nondedicated study. Impression: 1. No visceral injury to the chest, abdomen or pelvis. 2. Questionable acute compression fracture of the superior endplate of T8. Correlation with CT of the thoracolumbar spine is recommended. 3. Probable acute fracture of the coccyx. Consider correlation with dedicated CT and/or MRI of the coccyx and sacrum. 4. Acute undisplaced fracture of the right posterior ninth rib. At the same level some sclerotic changes are also present, please correlate clinically to exclude metastatic bone disease. 5. Left lower lobe consolidation suspicious for a small focus of pneumonia. 6. Large hiatus hernia containing the entire stomach. 7. Small complex pericardial effusion. This is suspicious for pericarditis. 8. No evidence of left shoulder fractures at this nondedicated study. Discussion Details: Results verbally communicated to : Dr. Grossman at 04:08 AM 06/23/2025 Report Electronically Signed By: Leno Velarde 06/23/2025 4:28:44 AM [EST]
[2025-06-23] MEDS: LEVOFLOXACIN/D5W 500 MG IVPB 500 MG/100 ML BAG 100 MG IV (05:28)
[2025-06-23 05:37] VITALS: BP 102/66; PULSE 56; RESP 17; TEMP 37.3; O2SAT 92
[2025-06-23 06:04] VITALS: BP 110/75; PULSE 59; RESP 14; TEMP 36.4; O2SAT 94
--- NOTE | 2025-06-23 06:58 | PC.NURSE ---
CALLED [facility] TO GIVE REPORT TO SANGEETA.
== END 2025-06-23 07:00 | disposition skilled nursing facility (03) ==
PROVIDERS: Emergency Provider Emergency Medicine; PCP Hospitalist
DX: S22.31XA Fracture of one rib, right side, initial encounter for closed fracture (principal); S22.060A Wedge compression fracture of T7-T8 vertebra, initial encounter for closed fracture; S32.2XXA Fracture of coccyx, initial encounter for closed fracture; W19.XXXA Unspecified fall, initial encounter; S40.012A Contusion of left shoulder, initial encounter; S80.01XA Contusion of right knee, initial encounter; J18.9 Pneumonia, unspecified organism; E11.9 Type 2 diabetes mellitus without complications
CPT/HCPCS: 36415; 70450; 70486; 71045; 71250; 72125; 73030; 73562; 74176; 80048; 81001; 83735; 84443; 85025; 96365; 99283; J1956

== ENCOUNTER 2025-07-16 03:10 | Emergency (ER) | payer MEDICARE, MEDICAID, SELFPAY ==
[2025-07-16 03:13] VITALS: BP 118/77; PULSE 80; RESP 18; TEMP 36.7; O2SAT 95
[2025-07-16 03:21] VITALS: PULSE 61; RESP 18; O2SAT 95
--- NOTE | 2025-07-16 04:19 | XR_ITS ---
Examination: CT cervical spine without contrast 2-D sagittal reconstructions 2-D coronal reconstructions 3-D reconstructions. Exam date and time: July 16, 2025, 0509 hours INDICATIONS: Ground-level fall today with injury to the neck, neck pain CTDI:vol (mGy) 12.26 DLP: (mGycm) 261 Technique: Multiple 2 mm axial sections of the cervical spine have been obtained. The coronal and sagittal reconstructions have been obtained. 3-D reconstructions have been obtained. Low dose protocols were performed. One or more of the following dose reduction techniques were used; automated exposure control, adjustment of the mA and/or KV according to patient size, use of iterative reconstruction technique. Findings: Axial sections demonstrate intact base of the skull. C1 exhibit satisfactory relationship to the odontoid. No acute cervical vertebral body fracture seen. Alignment posterior spinous processes satisfactory. Impression: No acute cervical fracture.
--- NOTE | 2025-07-16 04:19 | XR_ITS ---
Examination: CT brain head without contrast. 2-D sagittal coronal reconstructions Date and time of exam: July 16, 2025, 0508 hours INDICATIONS: Ground-level fall today with injury to the head, head pain COMPARISON: June 23, 2025 CTDI: vol (mGy): 46.30 DLP: (mGycm): 1036 Technique: Multiple CT axial sections of the brain have been obtained, 5 mm slice thickness. Contrast has not been administered. 2-D sagittal, coronal reconstructions have been obtained Low dose protocols were performed. One or more of the following dose reduction techniques were used; automated exposure control, adjustment of the mA and/or KV according to patient size, use of iterative reconstruction technique. Findings: No significant ventricular enlargement. Intra-axial or extra-axial hemorrhage density is not seen. No mass effect or midline shift Basal cisterns are not remarkable. Fourth ventricle is midline. Cranial vault intact. Right frontal scalp hematoma Impression: Negative for acute hemorrhage, mass effect or midline shift
--- NOTE | 2025-07-16 04:31 | PD.EDADULT ---
ED General RME/HPI General Chief complaint: Fall Stated complaint: FALL Time Seen by Provider: 07/16/25 04:14 Arrival date/time: 07/16/25 03:10 Related Data Home Medications ?Medication ?Instructions ?Recorded ?Confirmed atenolol 50 mg tablet (Tenormin) 50 mg PO QAM #0 tabs 08/22/16 10/19/18 gabapentin 100 mg capsule 300 mg PO HS #0 caps 08/22/16 10/19/18 metformin 500 mg tablet 500 mg PO BID #0 tabs 08/22/16 10/19/18 (Glucophage) simvastatin 20 mg tablet (Zocor) 20 mg PO HS #0 tabs 08/22/16 10/19/18 alendronate 70 mg tablet 70 mg PO Q7D 10/23/17 10/19/18 aspirin 81 mg tablet,delayed 81 mg PO QDAY 10/23/17 10/19/18 release (Aspir-Low) cyanocobalamin (vitamin B-12) 5,000 mcg PO QDAY 10/23/17 10/19/18 5,000 mcg sublingual tablet donepezil [Aricept] 10 tab PO HS 04/12/18 10/19/18 acetaminophen 500 mg tablet 500 mg PO Q6H PRN Pain 10/19/18 10/19/18 (Tylenol Extra Strength) baclofen 10 mg tablet 10 mg PO BID 10/19/18 10/19/18 calcium carbonate (Calcium 600) 1 tab PO DAILY 10/19/18 10/19/18 fluoxetine 20 mg capsule 20 mg PO QDAY 10/19/18 10/19/18 melatonin 5 mg tablet 5 mg PO HS 10/19/18 10/19/18 memantine 10 mg tablet 10 mg PO BID 10/19/18 10/19/18 multivitamin,tx-minerals 1 cap PO QDAY 10/19/18 10/19/18 (Multi-Vitamin HP/Minerals capsule) omega 5-wqv-znb-fish oil 1,000 mg 1 cap PO DAILY 10/19/18 10/19/18 (120 mg-180 mg) capsule (Fish Oil) omeprazole 40 mg capsule,delayed 40 mg PO QDAY 10/19/18 10/19/18 release Allergies Allergy/AdvReac Type Severity Reaction Status Date / Time No Known Allergies Allergy Verified 07/04/24 22:14 ED Exam Narrative Physical exam: Physical Exam: GENERAL: Awake, answering questions appropriately, appears stated age HEENT: NC/AT. Moist mucosa. PERRLA/EOMI. Frontal region of cranium has a 5 cm ecchymosis CARDIO: Heart RRR, no obvious murmurs, no JVD. PULM: No coughing or visible SOB. Lungs CTA B/L. GI: Abdomen soft, NT/ND, +BS. SKIN/MSK/EXT: No wounds/discoloration/rashes/edema/amputations. +Pedal pulses present B/L. NEURO: Oriented x3, Moves extremities x4, no focal neurologic deficits noted, cranial nerves II to XII grossly intact, no pronator drift noted, [id number] unremarkable, muscle strength 4 out of 5 in bilateral upper and lower extremities. Course Quality Measures none Orders Category Date Time Status Bedside Blood Glucose NOW Care 07/16/25 04:19 Active IV [Insert IV] NOW Care 07/16/25 04:[address] cervical spine wo con Stat Exams 07/16/25 04:[address] head/brain wo con Stat Exams 07/16/25 04:19 Taken CBC Auto Diff Post-Transfusion Stat Lab 07/16/25 04:25 Completed CMP [Comprehensive Metabolic Panel] Stat Lab 07/16/25 04:25 Received Vital Signs Vital signs: Vital Signs Temperature 98.0 F 07/16/25 03:13 Pulse Rate 80 07/16/25 03:13 Respiratory Rate 18 07/16/25 03:13 Blood Pressure 118/77 07/16/25 03:13 Pulse Oximetry (%) 95 07/16/25 03:13 Oxygen Delivery Method Room Air 07/16/25 03:13 Discharge Plan Plan Patient Disposition: HOME (Self Care) Patient condition on transfer: Stable Prescriptions/Referrals Prescriptions/Med Rec: No Action donepezil [Aricept] 10 tab PO HS gabapentin 100 MG capsule 300 mg PO HS Qty: 0 metformin [Glucophage] 500 MG tablet 500 mg PO BID Qty: 0 simvastatin [Zocor] 20 MG tablet 20 mg PO HS Qty: 0 atenolol [Tenormin] 50 MG tablet 50 mg PO QAM Qty: 0 alendronate 70 mg Tablet 70 mg PO Q7D aspirin [Aspir-Low] 81 mg Tablet,Delayed Release (Dr/Ec) 81 mg PO QDAY cyanocobalamin (vitamin B-12) 5,000 mcg Tablet, Sublingual 5,000 mcg PO QDAY omeprazole 40 mg Capsule,Delayed Release(Dr/Ec) 40 mg PO QDAY acetaminophen [Tylenol Extra Strength] 500 mg Tablet 500 mg PO Q6H PRN (Reason: Pain) calcium carbonate [Calcium 600] 600 mg calcium (1,500 mg) Tablet 1 tab PO DAILY baclofen 10 mg Tablet 10 mg PO BID fluoxetine 20 mg Capsule 20 mg PO QDAY Multi-Vitamin HP/Minerals Capsule 1 cap PO QDAY memantine 10 mg Tablet 10 mg PO BID melatonin 5 mg Tablet 5 mg PO HS omega 7-doc-uvv-fish oil [Fish Oil] 1,000 mg (120 mg-180 mg) Capsule 1 cap PO DAILY Referrals: Jennie Angela MD [Primary Care Provider] - In 1 week Problem List Clinical Impression: Fall from ground level Patient/Caregiver Discharge Instructions Print Language: Kenyan Stand Alone Forms: [employer] Award Info., Patient Portal Info Letter MDM Narrative MDM hospital course (for use when minimal MDM required): HPI: 80-year-old female with past medical history of multiple falls, [id number] type 2 diabetes, mild dementia, hypothyroidism presenting to the ED on 07/16 with an episode of a fall at her long term, [facility]. Patient states that she was in her wheelchair when she dropped something and attempted to pick it up when she rolled forward and hit her head face first. She denies having any dizziness during the episode, loss of consciousness or chest pain/palpitations. She states she usually is able to ambulate using a walker at [facility] and has been there for 1 year. She would like to go back home and stay with her sister as she thinks she is ready to be discharged from [facility]. She denies ever being told that she has bradycardia and denies having any symptoms while ambulating at [facility]. On examination, please refer to the physical exam above; patient presented to the ED normotensive, regular heart rate, regular respiratory rate, afebrile satting 95 on room air. CBC and CMP are pending at this time, bedside glucose is also pending. CT head and CT of the cervical spine without contrast have been ordered since the patient did have a fall and had some ecchymosis on the right frontal side of her head. #Ground-level fall As noted above in HPI based on physical exam findings Plan: Will follow-up based on CBC, CMP, bedside blood glucose and CT imaging studies Patient seen and assessed with attending Dr. Orlando Maldonado, DO PGY-2 Internal Medicine - [facility]
[2025-07-16 05:00] VITALS: BP 100/71; PULSE 50; RESP 18; O2SAT 99
[2025-07-16 05:08] LABS: Basophils # (Auto) 0.0 Thou/mm3 (0.0-0.2); Basophils % (Auto) 1 % (0-2.5); Eosinophils # (Auto) 0.1 Thou/mm3 (0.0-0.5); Eosinophils % (Auto) 3 % (0-10); Hematocrit 43.0 % (36.0-46.0); Hemoglobin 14.0 g/dL (12.0-16.0); Immature Granulocytes Auto 0.01 Thou/mm3 (0.00-0.00); Lymphocytes # (Auto) 1.3 Thou/mm3 (1.0-4.8); Lymphocytes % (Auto) 30 % (10-50); Mean Corpuscular HGB Conc 32.6 g/dl (31.0-37.0); Mean Corpuscular Hemoglobin 27.8 pg (25.0-35.0); Mean Corpuscular Volume 85 fL (80-100); Monocytes # (Auto) 0.6 Thou/mm3 (0.0-0.8); Monocytes % (Auto) 14 % (0-12); Neutrophils # (Auto) 2.3 Thou/mm3 (1.8-7.7); Neutrophils % (Auto) 53 % (37-80); Nucleated Red Blood Cell # 0.00 Thou/mm3 (0.00-0.00); Nucleated Red Blood Cell % 0 /100 WBC (0); Platelet Count 177 Thou/mm3 (140-440); RDW Standard Deviation 46.1 fL (36.4-46.3); Red Blood Count 5.04 Miln/mm3 (4.00-5.20); White Blood Count 4.3 Thou/mm3 (3.6-11.0)
--- NOTE | 2025-07-16 05:21 | PRELIM_ITS ---
CT scan of the head without intravenous contrast (axial sections with sagittal and coronal reformats) July 16, 2025 0508 hours Clinical History: Fall, unwitnessed, found down Compared with the prior study dated June 23, 2025. Findings: There is no evidence of intracranial hemorrhage, mass effect or midline shift. There are periventricular white matter hypodensities, compatible with chronic small vessel ischemia. There is mild volume loss. Basal ganglia calcifications are present bilaterally. The calvarium is intact. The mastoid air cells and the visualized paranasal sinuses are clear. There is a small soft tissue hematoma in the right frontal scalp. Impression: No evidence of intracranial hemorrhage, midline shift or calvarial fracture. Periventricular chronic small vessel ischemia and volume loss. Report Electronically Signed By: Clifton Ramos 07/16/2025 5:21:07 AM [EST]
--- NOTE | 2025-07-16 05:24 | PRELIM_ITS ---
CT scan of the cervical spine without intravenous contrast (axial sections with sagittal and coronal reformats) July 16, 2025 0509 hours Clinical History: Fall, unwitnessed, found down Compared with the prior study dated June 24, 2025. Findings: The bones are osteopenic. There is no fracture or traumatic subluxation. There are multilevel degenerative changes in the form of marginal osteophytes, decreased disc height, uncinate process and facet arthrosis, most prominent at C4-C5, C5-C6 and C6-C7 levels causing mild spinal canal and bilateral neural foraminal narrowing. The prevertebral soft tissues are unremarkable. Impression: No evidence of fracture or traumatic subluxation. Degenerative changes as described above. Report Electronically Signed By: Clifton Ramos 07/16/2025 5:23:12 AM [EST]
[2025-07-16 05:42] LABS: Alanine Aminotransferase 8 U/L (10-49); Albumin, Serum 4.2 gm/dL (3.4-4.8); Albumin/Globulin Ratio 1.4 (1.2-2.2); Alkaline Phosphatase 96 U/L (46-116); Anion Gap 8 (7-16); Aspartate Amino Transferase 20 U/L (0-34); BUN/Creatinine Ratio 27 Ratio (12-20); Bilirubin,Total 0.6 mg/dL (0.3-1.2); Blood Urea Nitrogen 24 mg/dL (9-23); Calcium 9.8 mg/dL (8.3-10.6); Calcium (Corrected) 9.8 mg/dL (8.5-10.1); Carbon Dioxide 28.3 mMol/L (20.0-31.0); Chloride 104 mMol/L (98-107); Creatinine (Component) 0.9 mg/dL (0.6-1.3); Globulin 2.9 gm/dL (2.3-3.5); Glucose 82 mg/dL (74-106); Osmolality,Calculated 282 (275-295); Potassium 4.6 mMol/L (3.4-5.1); Sodium 140 mMol/L (136-145); Total Protein 7.1 gm/dL (5.7-8.2); eGFR > 60 See Note
[2025-07-16 05:54] VITALS: BP 98/70; PULSE 60; RESP 18; TEMP 36.6; O2SAT 99
--- NOTE | 2025-07-16 06:25 | PC.NURSE ---
pt is being DCd. report called to nurse at [facility]. Also notified pts sister .
[2025-07-16 06:41] VITALS: BP 110/67; PULSE 61; RESP 18; TEMP 36.8; O2SAT 98
== END 2025-07-16 07:04 | disposition home or self-care (01) ==
PROVIDERS: Emergency Provider Emergency Medicine; PCP Hospitalist
DX: S00.83XA Contusion of other part of head, initial encounter (principal); S19.9XXA Unspecified injury of neck, initial encounter; W05.0XXA Fall from non-moving wheelchair, initial encounter; Y93.89 Activity, other specified; Y92.129 Unspecified place in nursing home as the place of occurrence of the external cause
CPT/HCPCS: 36415; 70450; 72125; 80053; 85025; 99283